=== PATIENT | female | born 2000 | race Caucasian/White ===

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

== ENCOUNTER 2023-07-22 06:27 | Emergency (ER) | payer MEDICAID ==
[2023-07-22] MEDS ORDERED: Lidocaine 1% 5 ML VIAL INJECT ONE (06:44)
[2023-07-22 06:55] VITALS: BP 128/85; PULSE 114
[2023-07-22] MEDS ORDERED: Bacitracin Oint 1 GM U/D Packet ONE (07:02)
[2023-07-22] MEDS ORDERED: Bacitracin Oint 1 GM U/D Packet TOP ONE (07:03)
== END 2023-07-22 07:09 | disposition home or self-care (01) ==
LOC: DL.ED 06:27
DX: S01.81XA Laceration without foreign body of other part of head, initial encounter (principal); Z88.0 Allergy status to penicillin; Y04.0XXA Assault by unarmed brawl or fight, initial encounter
CPT/HCPCS: 12011; 99282; A9270; J3490